=== PATIENT | female | born 1985 | race Caucasian/White ===

== ENCOUNTER 2021-09-11 09:17 | Emergency (ER) | payer BC, SELFPAY ==
--- NOTE | ~2021-09-11 | CT_ITS ---
EXAMINATION: CT HEAD WITHOUT CONTRAST CLINICAL INFORMATION: Trauma COMPARISON: None TECHNIQUE: Contiguous axial imaging was performed from the skull base to vertex without intravenous administration of contrast. Additional 2-D coronal and sagittal reformatted images are generated on the CT workstation and uploaded to PACS. This CT examination was performed using dose optimization techniques as appropriate, variously including the following: *Automated exposure control *Adjustment of mA and/or kV according to patient size (this includes techniques or standardized protocols for targeted exams where dose is matched to indication/reason for exam; i.e. extremities or head) *Use of iterative reconstruction technique DLP: 580 mGy-cm FINDINGS: There is no intracranial hemorrhage, hematoma, or extra-axial fluid collection. The ventricles are normal in size. There is no hydrocephalus, edema, or mass effect. The amador-white matter differentiation appears well preserved . There is no visible acute territorial infarct or mass lesion. The calvarium appears intact. There is no pneumocephalus or orbital emphysema. The visualized sinuses and middle ears and mastoid air cells show no significant mucosal thickening. There are no air-fluid levels. CT/CT head/brain wo con IMPRESSION: Normal noncontrast CT head.
[2021-09-11 09:30] VITALS: BP 137/83; PULSE 77; RESP 18; TEMP 36.6; BMI 23.0
--- NOTE | 2021-09-11 09:59 | ED_ITS ---
HPI - General Adult General Chief complaint: Head Injury Stated complaint: hit head on cabinet Time Seen by Provider: 09/11/21 09:50 Source: patient Limitations: no limitations History of Present Illness HPI narrative: Patient states last night while bending over when getting up she struck her head on a cabinet. Patient does not think she passed out but felt very different. With questions of loss of consciousness. Positive headache at this time 02/27. Patient has longstanding history of anxiety which she takes medications for. Patient states she awoke today still not feeling right. Slight dizziness positive headache no recent nausea vomiting. No prior history of head injuries. Patient is not on any blood thinners at this time. Symptoms are [id number]. No other complaints Related Data Allergies Allergy/AdvReac Type Severity Reaction Status Date / Time No Known Allergies Allergy Verified 09/11/21 09:50 Review of Systems Constitutional: Constitutional: Denies chills, Reports fatigue, Denies fever(s) and Reports headache(s) Eyes: Eyes: Denies blurry vision, Denies diplopia and Denies loss of vision ENT: Denies vertigo and Reports headache(s) Cardiovascular: Cardiovascular: Denies chest pain, Reports lightheadedness and Denies dyspnea Respiratory: Respiratory: Denies dyspnea Gastrointestinal: Gastrointestinal: Denies nausea and Denies vomiting Musculoskeletal: Musculoskeletal: Reports no additional musculoskeletal complaints and Denies numbness Neurologic: Denies vertigo, Reports headache(s), Denies loss of vision, Denies numbness and Denies Other visual disturbances Comments: Question LOC Endocrine: Endocrine: Reports no additional endocrine complaints and Reports fatigue Hematologic/Lymphatic: Hematologic/Lymphatic: Reports no additional hematolo gic/lymphatic complaints [facility] Past Medical History Medical History (Updated 09/11/21 @ 10:33 by Bull Quigley) Anxiety Social History Social History Advance Directives: No Advance Directives Information Provided: No Patient : No Physical Exam Vital Signs: Vital Signs: Last Vital Signs Temp 98 F 09/11/21 09:30 Pulse 77 09/11/21 09:30 Resp 18 09/11/21 09:30 BP 137/83 09/11/21 09:30 BMI result Body Mass Index 23.0 vital signs have been reviewed as normal and appeared to be correct. Blood pressure normal. Heart rate normal. Respiration rate normal. Temperature normal. Oxygen saturation normal. Appearance: Alert. Oriented X3. No acute distress. Head: Normal external exam. Normocephalic. Atraumatic. No Garcia signs noted. No raccoon eyes noted Eyes: PERRLA. EOMI. Conjunctiva and sclera normal. Eyelids normal. ENT: Pharynx normal. Uvula midline. Moist mucous membranes. Neck: Soft full range of motion, no JVD CVS: Heart regular rate and rhythm no murmurs and rubs Respiratory: Breath sounds are clear to auscultation bilaterally. No accessory muscle use noted. Back: No CVA tenderness. Full range of motion noted. Skin: Skin warm and dry. Normal skin color. Normal skin turgor. No rashes/lesions/lacerations noted. Extremities: No lower extremity edema. Extremities exhibit normal range of motion. Extremities nontender. Neuro: Patient is more oriented x3 positive power and recovery superintendent is equal bilateral no ataxia no pronator drift no focal deficit noted. Course Course Course Narrative: Close head injury Concussion Subdural bleed Epidural bleed CT scan pending of the head 10:[address] scan is normal Medical Decision Making Imaging Data CT scan - head: Radiologist's impression: [address] [address] [address] Scan Report Signed Patient: Wilma Bates MR#: [id number] : 1985 Acct:[id number] Age/Sex: 35 / F ADM Date: 09/11/21 Loc: .ED Attending Dr: Ordering Physician: Bull Quigley Date of Service: 09/11/21 Procedure(s): CT head/brain wo con Accession Number(s): [id number] cc: Bull Quigley ~ EXAMINATION: CT HEAD WITHOUT CONTRAST CLINICAL INFORMATION: Trauma? COMPARISON: None TECHNIQUE: Contiguous axial imaging was performed from the skull base to vertex without intravenous administration of contrast.? Additional 2-D coronal and sagittal reformatted images are generated on the CT workstation and uploaded to PACS. This CT examination was performed using dose optimization techniques as appropriate, variously including the following: *Automated exposure control *Adjustment of mA and/or kV according to patient size (this includes techniques or standardized protocols for targeted exams where dose is matched to indication/reason for exam; i.e. extremities or head) *Use of iterative reconstruction technique DLP: 580 mGy-cm FINDINGS: There is no intracranial hemorrhage, hematoma, or extra-axial fluid collection.? The ventricles are normal in size. There is no hydrocephalus, edema, or mass effect.? The amador-white matter differentiation appears well preserved . There is no visible acute territorial infarct or mass lesion. The calvarium appears intact. There is no pneumocephalus or orbital emphysema.? The visualized sinuses and middle ears and mastoid air cells show no significant mucosal thickening. There are no air-fluid levels. CT/CT head/brain wo con IMPRESSION: Normal noncontrast CT head. ? Dictated By: Dario De La Vega MD Signed By: <Electronically signed by Dario De La Vega MD in OV> 09/11/21 1025 DD/ 1010 TD/TT:? Product Responsibility Liaison: CONWAY Discharge Plan Discharge Clinical Impression: Closed head injury Qualifiers: Encounter type: initial encounter Qualified Code(s): S09.90XA - Unspecified injury of head, initial encounter Concussion without loss of consciousness Qualifiers: Encounter type: initial encounter Qualified Code(s): S06.0X0A - Concussion without loss of consciousness, initial encounter Patient Disposition: Home, Self-Care Instructions: Head Injury (ED) Additional Instructions: CT scan results normal [id number] Motrin or Tylenol for pain If symptoms persists call PCP for follow-up for possible referral to concussion specialist. Symptoms will continue to improve Stand Alone Forms: Work/School Release
== END 2021-09-11 10:46 | disposition home or self-care (01) ==
PROVIDERS: Emergency Provider Emergency Medicine; PCP Internal Medicine
DX: S06.0X0A Concussion without loss of consciousness, initial encounter (principal); F41.9 Anxiety disorder, unspecified; Z79.899 Other long term (current) drug therapy; W22.09XA Striking against other stationary object, initial encounter; Y93.9 Activity, unspecified; Y92.9 Unspecified place or not applicable; Y99.9 Unspecified external cause status
CPT/HCPCS: 70450; 99283; 99284

== ENCOUNTER 2021-11-17 11:25 | Emergency (ER) | payer BC, SELFPAY ==
[2021-11-17 11:56] VITALS: BP 140/80; PULSE 80; RESP 19; TEMP 36.9; O2SAT 100; BMI 23.0
[2021-11-17 12:26] LABS: Anion Gap 12 (12-20); Blood Urea Nitrogen 6 mg/dL (9-16); Calcium 10.4 mg/dL (8.4-10.2); Carbon Dioxide 25 mmol/L (22-29); Chloride 105 mmol/L (96-108); Creatinine Clr Calc Pharmacy 88.9; Estimated Glomerular Filt Rate > 60; Glucose Random 106 mg/dL (60-115); Potassium 4.2 mmol/L (3.3-5.1); Sodium 138 mmol/L (135-145)
--- NOTE | 2021-11-17 13:46 | ED.DIZZY ---
HPI - Dizziness General Chief Complaint: Dizziness Stated Complaint: lightheaded Time Seen by Provider: 11/17/21 13:46 Source: patient Mode of arrival: ambulatory Limitations: no limitations History of Present Illness HPI Narrative: Lighteaded, patient had an episode yesterday where she was fuzzy and she nearly passed out. she has been feeling like this for 24 hours. Denies headache or change in vision, no chest pain or shortness of breath. She came out of a hot shower yesterday but this has not improved. patient is on Buspar and is on OCPs. She tapered of clonazepam last week. She has been on Buspar for one year. No change in movement. MD elicited complaint: lightheadedness and near syncope Onset (ago): day(s) Timing: gradual onset Severity: moderate History of similar symptoms: No Associated symptoms: denies other symptoms Related Data Allergies Allergy/AdvReac Type Severity Reaction Status Date / Time No Known Allergies Allergy Verified 09/11/21 09:50 Review of Systems Constitutional: Constitutional: Reports no additional constitutional complaints Eyes: Eyes: Reports no additional eye complaints ENT: Denies dizziness Cardiovascular: Cardiovascular: Reports no additional cardiovascular complaints Respiratory: Respiratory: Reports as per HPI Gastrointestinal: Gastrointestinal: Reports no additional gastrointestinal complaints Genitourinary: Genitourinary: Reports no additional female genitourinary complaints Musculoskeletal: Musculoskeletal: Reports no additional musculoskeletal complaints Integumentary/Breasts: Skin/Breast: Denies rash Neurologic: Reports system reviewed and no additional complaints, except as documented, Denies dizziness and Denies Sensory deficit (Neuro) Psychiatric: Psychiatric: Denies anxiety [facility] Past Medical History Medical History (Updated 11/17/21 @ 18:42 by Dario Alvarez MD) Anxiety Social History Social History Advance Directives: No Advance Directives Information Provided: No Physical Exam Vital Signs: Vital Signs: Last Vital Signs Temp 98.4 F 11/17/21 11:56 Pulse 94 11/17/21 17:27 Resp 18 11/17/21 17:27 BP 119/75 11/17/21 17:27 Pulse Ox 99 11/17/21 17:27 BMI result Body Mass Index 23.0 Const: Other: anxious and tearful General: healthy appearing Nutritional Appearance: average body habitus Orientation/consciousness: oriented to person and patient oriented x3 Limitations: no limitations HENMT: Head: Yes normal to inspection Ears: external ears normal General nose exam: Normal external nose present Mouth: Normal oral and palatal mucosa present and oropharynx normal Throat: Yes posterior oropharynx normal Eyes: General: appearance normal, both eyes and all related structures Neck: Other: supple Neck: Yes normal visual inspection Chest: Chest palpation & inspection: normal inspection of the chest Resp: Auscultation: clear to auscultation bilaterally Cardio: Jugular venous distension: no JVD Rate: regular rate Rhythm: regular rhythm Heart sounds: S1 normal heart sound present and S2 normal heart sound present GI: Inspection: Yes normal to inspection Palpation (GI): Soft to palpation, nontender and No hepatosplenomegaly present Auscultation: normal bowel sounds : General: Yes no CVA tenderness Back/Spine/Pelvis: Back: no CVA tenderness Skin: General skin exam: no rashes or lesions noted Neuro: General: oriented to person and patient oriented x3 Cranial nerves: Yes CN's II-XII intact bilaterally Motor exam (neuro): 5/5 motor strength present throughout Sensory Exam: No Sensory deficit (Neuro) Extrem: General: Yes normal to inspection Psych: Other: anxious and tearful Course Reevaluation(s) Reevaluation #1: Patient is not orthostatic with normal labs, she is tearful. At this point her symptoms are most likely related to stress, she is feeling overwhelmed. will consult CARE team Time: 15:53 Reevaluation #2: normal HCT, seen by CARE team who feels she can go home and see her psychiatrist. Time: 18:40 MDM - Dizziness Lab Data Result diagrams: 11/17/21 16:31 11/17/21 12:05 Labs: Lab Results 11/17/21 11/17/21 11/17/21 Range/Units 12:05 14:35 14:35 WBC (4.8-10.8) X10*3/uL RBC (4.20-5.50) X10*6/uL Hgb (12.0-16.0) g/dl Hct (37.0-47.0) % MCV (80.0-98.0) fL MCH (27.0-33.0) pg MCHC (31.0-35.0) g/dl RDW (11.0-16.0) % Plt Count (160-400) X10*3/uL MPV (9.4-12.3) fL Immature Gran % (Auto) (0.0-0.4) % Neut % (Auto) (45-73) % Lymph % (Auto) (20-40) % Winston % (Auto) (2-11) % Eos % (Auto) (0-4) % Baso % (Auto) (0-2) % Lymph # (Auto) (1.2-4.9) X10*3/uL Winston # (Auto) (0.1-1.2) X10*3/uL Eos # (Auto) (0.0-0.4) X10*3/uL Baso # (Auto) (0.0-0.2) X10*3/uL Abs Immat Gran (auto) (0.00-0.03) X10*3/uL Absolute Neuts (auto) (2.0-8.3) x10*3/uL Absolute Nucleated RBC (0.0-0.012) X10*3/uL Nucleated RBC % (auto) (0.0-0.2) /100WBC Sodium 138 (135-145) mmol/L Potassium 4.2 (3.3-5.1) mmol/L Chloride 105 (96-108) mmol/L Carbon Dioxide 25 (22-29) mmol/L Anion Gap 12 (12-20) BUN 6 L (9-16) mg/dL Creatinine 0.73 (0.5-1.4) mg/dL Estim Creat Clear Calc 88.9 Estimated GFR > 60 Random Glucose 106 (60-115) mg/dL Calcium 10.4 H (8.4-10.2) mg/dL Urine Color STRAW Urine Appearance CLEAR Urine pH 7.0 (5.0-8.0) Ur Specific Friendship 1.010 (1.005-1.025) Urine Protein NEG (NEG-TRACE) MG/DL Urine Glucose (UA) NEG (NEG) MG/DL Urine Ketones NEG (NEG) MG/DL Urine Blood NEG (NEG) Urine Nitrite NEG (NEG) Ur Leukocyte Esterase NEG (NEG) Urine Test NEGATIVE (NEGATIVE) 11/17/21 Range/Units 16:31 WBC 7.6 (4.8-10.8) X10*3/uL RBC 4.29 (4.20-5.50) X10*6/uL Hgb 13.0 (12.0-16.0) g/dl Hct 38.2 (37.0-47.0) % MCV 89.0 (80.0-98.0) fL MCH 30.3 (27.0-33.0) pg MCHC 34.0 (31.0-35.0) g/dl RDW 12.2 (11.0-16.0) % Plt Count 222 (160-400) X10*3/uL MPV 9.6 (9.4-12.3) fL Immature Gran % (Auto) 0.1 (0.0-0.4) % Neut % (Auto) 67.1 (45-73) % Lymph % (Auto) 26.3 (20-40) % Winston % (Auto) 5.7 (2-11) % Eos % (Auto) 0.3 (0-4) % Baso % (Auto) 0.5 (0-2) % Lymph # (Auto) 2.0 (1.2-4.9) X10*3/uL Winston # (Auto) 0.4 (0.1-1.2) X10*3/uL Eos # (Auto) 0.0 (0.0-0.4) X10*3/uL Baso # (Auto) 0.0 (0.0-0.2) X10*3/uL Abs Immat Gran (auto) 0.01 (0.00-0.03) X10*3/uL Absolute Neuts (auto) 5.1 (2.0-8.3) x10*3/uL Absolute Nucleated RBC 0.000 (0.0-0.012) X10*3/uL Nucleated RBC % (auto) 0.0 (0.0-0.2) /100WBC Sodium (135-145) mmol/L Potassium (3.3-5.1) mmol/L Chloride (96-108) mmol/L Carbon Dioxide (22-29) mmol/L Anion Gap (12-20) BUN (9-16) mg/dL Creatinine (0.5-1.4) mg/dL Estim Creat Clear Calc Estimated GFR Random Glucose (60-115) mg/dL Calcium (8.4-10.2) mg/dL Urine Color Urine Appearance Urine pH (5.0-8.0) Ur Specific Friendship (1.005-1.025) Urine Protein (NEG-TRACE) MG/DL Urine Glucose (UA) (NEG) MG/DL Urine Ketones (NEG) MG/DL Urine Blood (NEG) Urine Nitrite (NEG) Ur Leukocyte Esterase (NEG) Urine Test (NEGATIVE) ECG Data Attestation: I personally reviewed and interpreted this ECG as follows: Interpretation: sinus 80, no st or twave changes Discharge Plan Discharge Clinical Impression: Dizziness, Anxiety Patient Disposition: Home, Self-Care Instructions: Anxiety (ED), Dizziness (ED) Additional Instructions: call your psychiatrist tomorrow Referrals: Delroy Viveros MD [Primary Care Provider] - 3 days
--- NOTE | 2021-11-17 13:50 | ECG_ITS ---
Test Reason : DIZZINESS Blood Pressure : / mmHG Vent. Rate : 083 BPM Atrial Rate : 083 BPM P-R Int : 128 ms QRS Dur : 090 ms QT Int : 356 ms P-R-T Axes : 044 058 032 degrees QTc Int : 418 ms Normal sinus rhythm Normal ECG When compared with ECG of 17-DEC-2010 16:31, Nonspecific T wave abnormality now evident in Anterior leads Referred By: Dario Alvarez Electronically Signed By:Deshawn Patricio
--- NOTE | 2021-11-17 14:18 | PC.NURSE ---
Pt received: Pt AOX4 and offers mild c/o dizziness. No neuro deficits noted. Pt currently on phone, hunched over, in no distress. Heart sounds normal, NSR noted, and lungs clear. Pt abd soft and non-tender.
[2021-11-17 14:20] VITALS: BP 138/78; PULSE 84; RESP 18; O2SAT 98
[2021-11-17 14:26] VITALS: BP 128/85; BP 141/90; PULSE 82; PULSE 88; RESP 18; O2SAT 97; O2SAT 98
[2021-11-17 14:41] LABS: Appearance Urine CLEAR; Color Urine STRAW; Glucose Urine UA NEG (NEG); Leukocyte Esterase Urine NEG (NEG); Nitrite Urine NEG (NEG); Urine Blood NEG (NEG); Urine Ketones NEG (NEG); Urine Protein NEG (NEG-TRACE)
[2021-11-17 14:42] LABS: UPreg QC Valid YES
[2021-11-17 14:43] LABS: Urine Pregnancy NEGATIVE (NEGATIVE)
--- NOTE | 2021-11-17 15:31 | PC.NURSE ---
MD Alvarez made aware that upon attempt to redraw pt for CBC, pt immediately began uncontrollably crying and refusing blood work. RN will continue to monitor.
[2021-11-17 16:34] LABS: MANUAL DIFF FLAG NO
[2021-11-17 16:35] LABS: Basophils Percent Auto 0.5 % (0-2); Eosinophils Percent Auto 0.3 % (0-4); Hematocrit 38.2 % (37.0-47.0); Imm Gran Abs Auto 0.01 X10*3/uL (0.00-0.03); Imm Gran Pct Auto 0.1 % (0.0-0.4); Lymphocytes Percent Auto 26.3 % (20-40); Mean Corpuscular Hemoglobin 30.3 pg (27.0-33.0); Mean Platelet Volume 9.6 fL (9.4-12.3); Monocytes Absolute Auto 0.4 X10*3/uL (0.1-1.2); Monocytes Percent Auto 5.7 % (2-11); Neutrophils Absolute Auto 5.1 x10*3/uL (2.0-8.3); Neutrophils Percent Auto 67.1 % (45-73); Platelet Count 222 X10*3/uL (160-400); Red Blood Count 4.29 X10*6/uL (4.20-5.50); Red Cell Distribution Width 12.2 % (11.0-16.0); White Blood Count 7.6 X10*3/uL (4.8-10.8)
[2021-11-17 17:27] VITALS: BP 119/75; PULSE 94; RESP 18; O2SAT 99
--- NOTE | 2021-11-17 18:29 | PC.NURSE ---
CARE team contact in reference to pt update status. Will receive call back. RN will continue to monitor.
--- NOTE | 2021-11-17 18:39 | MHC.CARE ---
CARE team consult received for pt who has been seen in the ED for medical evaluation s/p lightheaded/dizziness and having a fainting episode yesterday. Pt was recently tapered off clonazepam and has been tearful and upset during her time in the ED thus far. This film writer met with pt in ED21. She reported that she had been on clonazepam for a very long time and that she had been trying to taper off from it for the past year with the assistance of her psychiatric nurse practitioner, Karl Johnson. She started taking buspar last summer with the intention of replacing the clonazepam once she has been fully tapered off of it. She had been taking 0.5mg BID, then dropped to 0.5 QD, and stopped entirely last week. She denied having experienced any intense feelings of anxiety up until yesterday after she had felt light headed and fainted. Since then, she has felt overwhelming anxious and concerned that something is wrong with her, worried that she'll have to keep missing work and could lose her job, etc. Pt denied there being any recent changes in her sleep and appetite, denied SI/HI, denied panic attacks. Pt reported that she has a therapist whom she is seeing on Wednesday this week. Consulted with Tracy Lema circuit clerk. Recommendation has been made for the pt to contact her psych prescriber and her PCP in the morning. It is possible that pt could be experiencing ongoing withdrawal symptoms from discontinuing the clonazepam, which should be explored. ED attending physician Dario Alvarez MD has been updated re: consult and recommendation.
--- NOTE | 2021-11-17 19:04 | PC.NURSE ---
Pt D/C from ER with instructions. Pt states understanding and all further questions answered to pt satisfaction. Pt explained that she would need to f/u with her own primary psychiatrist.
== END 2021-11-17 19:05 | disposition home or self-care (01) ==
PROVIDERS: Emergency Provider Emergency Medicine; PCP Internal Medicine
DX: R42 Dizziness and giddiness (principal); F41.9 Anxiety disorder, unspecified
CPT/HCPCS: 36415; 80048; 81003; 81025; 85025; 93005; 99283; 99284